=== PATIENT | male | born 1980 | race Caucasian/White ===

== ENCOUNTER 2020-04-29 05:44 | Emergency (ER) | payer SELFPAY ==
[~2020-04-29] VITALS: Ht 167.6 cm; Wt 54.4 kg
[2020-04-29 05:51] VITALS: Ht 167.6 cm; Wt 54.4 kg
[2020-04-29 09:57] LABS: microscopic required? NO
[2020-04-29 10:56] LABS: AMPHETAMINE QUAL UR NONE DETECTED (See below)
[2020-04-29 11:10] LABS: UA SPECIFIC GRAVITY >=1.030 (1.005-1.035); urine erythrocyte NEGATIVE (NEGATIVE)
[2020-04-29 12:05] VITALS: BP 101/65
== END 2020-04-29 12:05 | disposition home or self-care (01) ==
LOC: ED 05:44
PROVIDERS: Emergency Medicine
DX: G93.41 Metabolic encephalopathy (principal); F17.210 Nicotine dependence, cigarettes, uncomplicated; Z59.0 Homelessness
CPT/HCPCS: 83880; 99406; G0480; Q0092